=== PATIENT | female | born 1965 | race Two or more races ===

== ENCOUNTER 2024-09-27 23:16 | Emergency (ER) | payer BC ==
[~2024-09-27] VITALS: Ht 162.6 cm; Wt 95.7 kg
[2024-09-27] MEDS ORDERED: JANUVIA25 MG (23:28)
[2024-09-27] MEDS ORDERED: METFORMIN HCL1000 M2 (23:28)
[2024-09-27] MEDS ORDERED: JARDIANCE10 MG (23:28)
[2024-09-27] MEDS ORDERED: ACTOS15 MG (23:28)
[2024-09-27] MEDS ORDERED: GLIPIZIDE XL2.5 MG (23:28)
[2024-09-28] MEDS ORDERED: KETOROLAC TROMETHAMINE 60 MG VIAL IM STA (00:48)
[2024-09-28] MEDS ORDERED: MIRALAX17 GM PO (03:24)
== END 2024-09-28 03:29 ==
LOC: ER 23:16
DX: K59.00 Constipation, unspecified (principal); E11.9 Type 2 diabetes mellitus without complications; Z79.84 Long term (current) use of oral hypoglycemic drugs